=== PATIENT | male | born 1990 | race Two or more races ===

== ENCOUNTER 2021-09-15 21:48 | Emergency (ER) | payer MEDICAID, SELFPAY ==
--- NOTE | ~2021-09-15 | XR_ITS ---
EXAMINATION: XR CHEST CLINICAL INFORMATION: Chest COMPARISON: None TECHNIQUE: 2 views of the chest were obtained. FINDINGS: No significant abnormality is noted involving the heart, lungs, mediastinum, bony thorax or soft tissues. XR/XR chest 2V IMPRESSION: Unremarkable examination.
[2021-09-15 22:04] VITALS: BP 131/75; PULSE 68; RESP 18; TEMP 36.7; O2SAT 97; BMI 30.7
--- NOTE | 2021-09-15 23:22 | ECG_ITS ---
Test Reason : cp Blood Pressure : / mmHG Vent. Rate : 047 BPM Atrial Rate : 047 BPM P-R Int : 154 ms QRS Dur : 114 ms QT Int : 414 ms P-R-T Axes : 011 012 021 degrees QTc Int : 366 ms Sinus bradycardia Otherwise normal ECG No previous ECGs available Referred By: Myriam Herzog Electronically Signed By:TO TAVAREZ
[2021-09-15] MEDS: Cyclobenzaprine HCl 10 MG TABLET PO (23:30)
--- NOTE | 2021-09-15 23:40 | ED.CHESTPAIN ---
HPI - Chest Pain General Chief Complaint: General Medical Stated Complaint: Back pain/Chest pain/ Time Seen by Provider: 09/15/21 22:12 Source: patient Mode of arrival: ambulatory Limitations: no limitations History of Present Illness HPI narrative: Patient presents to the emergency department for evaluation of left upper back pain and chest pain. Patient reports 1 week ago feeling as though he slept wrong and had pain to the left shoulder blade. The pain was intermittent, but was having improvement with ibuprofen. Was evaluated by his primary care provider last week and given a prescription for a muscle relaxer sent to the pharmacy but he has not picked this up yet due to insurance issues. Today upon awakening his pain was suddenly significantly worse. In addition he feels the pain radiating to the chest described as a central chest tightness. Pain is exacerbated with cough or deep inspiration. Denies any prior history of DVT/PE, cancer, recent surgery or immobilization. reports a chronic dry nonproductive cough associated with marijuana usage. Denies any other recreational drug or alcohol usage. Patient does report a history of COVID-19 infection 1 month ago. Related Data Allergies Allergy/AdvReac Type Severity Reaction Status Date / Time No Known Allergies Allergy Verified 09/15/21 22:59 Review of Systems Review of Systems: Constitutional : No Weight loss, No Fever, No Chills ENT/Mouth :? No sore throat, No Rhinorrhea Eyes: No Eye Pain, No Swelling Cardiovascular : pos Chest Pain, no SOB, no Dyspnea on Exertion, No Orthopnea, No Edema, No Palpitations Respiratory : Positive Cough, No Sputum Gastrointestinal : No Nausea, No Vomiting, No Diarrhea, No abdominal Pain, No Hematochezia, No Melena Genitourinary : No Dysuria, No Urinary Frequency Musculoskeletal : Positive shoulder pain. No joint pain, No Myalgias, No Joint Swelling Skin : No Skin Lesions, No rash Neuro : No Weakness, No Numbness, No Dizziness, No Headache Psych : No Anxiety/Panic, No Depression Heme/Lymph: No Bruising, No Lymphadenopathy Endocrine : No Polyuria, No Polydipsia Yes all other systems are reviewed and are negative [facility] Past Medical History Attestation statement: The following information was validated with the patient. Source: old records reviewed Social History Social History Advance Directives: No Advance Directives Information Provided: No Physical Exam Vital Signs: Vital Signs: Last Vital Signs Temp 98.0 F 09/15/21 22:04 Pulse 68 09/15/21 22:04 Resp 18 09/15/21 22:04 BP 131/75 09/15/21 22:04 Pulse Ox 97 09/15/21 22:04 BMI result Body Mass Index 30.7 Vital signs have been reviewed as normal and appeared to be correct. Blood pressure normal.? Heart rate normal.? Respiration rate normal. Temperature normal.? Oxygen saturation normal. Appearance: Alert.?Oriented to person, place and time. No acute distress.?Normal affect. Eyes: Pupils equal, round and reactive to light.? ENT: Pharynx normal.?? Neck: Normal inspection.? Neck supple.?? CVS: Heart sounds normal. Normal heart rate and rhythm.? Pulses normal.??Reproducible chest pain with palpation of the chest wall Respiratory: No respiratory distress.? Lung sounds clear to auscultation bilaterally?? Abdomen: Soft and non-tender. ? Skin: Skin warm and dry.? Normal skin color.? ? Extremities: No lower extremity edema.? No calf ttp. Full AROM to left shoulder. Neuro: Moves all extremities spontaneously. Sensation intact bilaterally. CN II-XII intact. No focal neuro deficits. Ambulates with normal steady gait. Course Course Course Narrative: Patient is a 30-year-old male with no significant past medical history presenting to the emergency department for evaluation of chest and back pain. Will obtain CBC to evaluate for leukocytosis/ anemia, CMP to evaluate for abnormal electrolytes /abnormal renal function/ abnormal hepatic function, EKG and troponin to evaluate for ischemia/ACS. Chest x-ray to evaluate for consolidation/ infiltrate/ mass/ pulmonary congestion. COVID-19 influenza testing. Given patient's recent COVID-19 infection, will obtain D-dimer to exclude PE. Patient last took ibuprofen at 2030, avoid additional answered this time. Patient to trial cyclobenzaprine for back pain. Disposition pending results. Reevaluation(s) Reevaluation #1: COVID-19 and influenza testing are negative. CBC overall unremarkable, mild normocytic anemia. CMP is overall unremarkable. Troponin <3.5, EKG reveals sinus bradycardia, when asked patient states it is not uncommon for his heart rate to be in the 50s, no acute ischemic changes and no risk factors ever unlikely ACS. D-dimer less than 150, unlikely to be pulmonary embolism. Pain is most consistent to be muscular in nature. Advised ice, topical heat, rest, in addition to Tylenol/ibuprofen as needed. As mentioned previously, patient already has a prescription for a muscle relaxer sent to his pharmacy by his primary care provider. Discussed reasons that he should return back to the emergency department. All questions were answered and patient was discharged home in stable condition. MDM - Chest Pain Medical Records Data Attestation: I reviewed the patient's medical records. Lab Data Attestation: I reviewed the patient's lab results. Result diagrams: 09/15/21 23:54 09/15/21 23:54 Labs: Lab Results 09/15/21 09/15/21 09/15/21 Range/Units 23:36 23:36 23:54 WBC 7.2 (4.8-10.8) X10*3/uL RBC 4.69 (4.60-5.80) X10*6/uL Hgb 13.5 L (14.0-18.0) g/dl Hct 39.5 L (42.0-52.0) % MCV 84.2 (80.0-98.0) fL MCH 28.8 (27.0-33.0) pg MCHC 34.2 (31.0-36.0) g/dl RDW 13.9 (11.0-16.0) % Plt Count 224 (160-400) X10*3/uL MPV 9.9 (9.4-12.4) fL Immature Gran % (Auto) 0.3 (0.0-0.4) % Neut % (Auto) 56.2 (45-73) % Lymph % (Auto) 32.3 (20-40) % [place] % (Auto) 6.9 (2-11) % Eos % (Auto) 3.6 (0-4) % Baso % (Auto) 0.7 (0-2) % Lymph # (Auto) 2.3 (1.2-4.9) X10*3/uL [place] # (Auto) 0.5 (0.1-1.2) X10*3/uL Eos # (Auto) 0.3 (0.0-0.4) X10*3/uL Baso # (Auto) 0.1 (0.0-0.2) X10*3/uL Abs Immat Gran (auto) 0.02 (0.00-0.03) X10*3/uL Absolute Neuts (auto) 4.1 (2.0-8.3) x10*3/uL Absolute Nucleated RBC 0.000 (0.0-0.012) X10*3/uL Nucleated RBC % (auto) 0.0 (0.0-0.2) /100WBC D-Dimer High Sensitivty NG/ML Sodium (135-145) mmol/L Potassium (3.3-5.1) mmol/L Chloride (96-108) mmol/L Carbon Dioxide (22-29) mmol/L Anion Gap (12-20) BUN (9-16) mg/dL Creatinine (0.5-1.4) mg/dL Estim Creat Clear Calc Estimated GFR Random Glucose (60-115) mg/dL Calcium (8.4-10.2) mg/dL Magnesium (1.6-2.6) mg/dL Total Bilirubin (0.0-1.0) mg/dL AST (5-37) U/L ALT (0-40) U/L Alkaline Phosphatase (39-117) U/L Troponin I High Sens (<3.5-35.0) ng/L Total Protein (6.5-8.0) g/dL Albumin (3.5-5.0) g/dL COVID-19 ([facility]) Negative (Negative) COVID-19 Clin Com See Note Influenza Type A ([facility]) Negative (Negative) Influenza Type B ([facility]) Negative (Negative) Influenza A & B Note See Note 09/15/21 09/15/21 09/15/21 Range/Units 23:54 23:54 23:54 WBC (4.8-10.8) X10*3/uL RBC (4.60-5.80) X10*6/uL Hgb (14.0-18.0) g/dl Hct (42.0-52.0) % MCV (80.0-98.0) fL MCH (27.0-33.0) pg MCHC (31.0-36.0) g/dl RDW (11.0-16.0) % Plt Count (160-400) X10*3/uL MPV (9.4-12.4) fL Immature Gran % (Auto) (0.0-0.4) % Neut % (Auto) (45-73) % Lymph % (Auto) (20-40) % [place] % (Auto) (2-11) % Eos % (Auto) (0-4) % Baso % (Auto) (0-2) % Lymph # (Auto) (1.2-4.9) X10*3/uL [place] # (Auto) (0.1-1.2) X10*3/uL Eos # (Auto) (0.0-0.4) X10*3/uL Baso # (Auto) (0.0-0.2) X10*3/uL Abs Immat Gran (auto) (0.00-0.03) X10*3/uL Absolute Neuts (auto) (2.0-8.3) x10*3/uL Absolute Nucleated RBC (0.0-0.012) X10*3/uL Nucleated RBC % (auto) (0.0-0.2) /100WBC D-Dimer High Sensitivty < 150 NG/ML Sodium 142 (135-145) mmol/L Potassium 4.2 (3.3-5.1) mmol/L Chloride 109 H (96-108) mmol/L Carbon Dioxide 25 (22-29) mmol/L Anion Gap 12 (12-20) BUN 15 (9-16) mg/dL Creatinine 1.02 (0.5-1.4) mg/dL Estim Creat Clear Calc 127.4 Estimated GFR > 60 Random Glucose 93 (60-115) mg/dL Calcium 9.4 (8.4-10.2) mg/dL Magnesium 1.8 (1.6-2.6) mg/dL Total Bilirubin 1.0 (0.0-1.0) mg/dL AST 26 (5-37) U/L ALT 68 H (0-40) U/L Alkaline Phosphatase 50 (39-117) U/L Troponin I High Sens < 3.5 (<3.5-35.0) ng/L Total Protein 6.8 (6.5-8.0) g/dL Albumin 4.1 (3.5-5.0) g/dL COVID-19 ([facility]) (Negative) COVID-19 Clin Com Influenza Type A ([facility]) (Negative) Influenza Type B ([facility]) (Negative) Influenza A & B Note Imaging Data Chest x-ray: Radiologist's impression: FINDINGS: No significant abnormality is noted involving the heart, lungs, mediastinum, bony thorax or soft tissues. XR/XR chest 2V IMPRESSION: Unremarkable examination. ECG Data ECG #1: Attestation: I personally reviewed and interpreted this ECG as follows: Prior ECG tracings: not available for review Interpretation: Rate: Rhythm:? [place]:? Normal P waves.? Normal NATALIYA.?? Normal QRS complex.?? ST T wave :?? qTC: prior studies:? The study has been interpreted contemporaneously by me. Discharge Plan Discharge Clinical Impression: Chest pain, Acute shoulder pain Patient Disposition: Home, Self-Care Instructions: Noncardiac Chest Pain (ED), Shoulder Pain (ED) Additional Instructions: As we discussed the results of your blood work, EKG, and chest x-ray were all normal. Pain is most likely to be muscular in nature. Continue taking Tylenol and ibuprofen as needed for pain. You were given a prescription for muscle relaxer by her primary care provider as you made me aware, please pick this up from the pharmacy when you are able. You may return to the emergency department any new or worsening symptoms or concerns. Otherwise please follow-up with your primary care provider as needed.
[2021-09-16 00:02] LABS: MANUAL DIFF FLAG NO
[2021-09-16 00:22] LABS: Basophils Absolute Auto 0.1 X10*3/uL (0.0-0.2); Basophils Percent Auto 0.7 % (0-2); Eosinophils Absolute Auto 0.3 X10*3/uL (0.0-0.4); Eosinophils Percent Auto 3.6 % (0-4); Hematocrit 39.5 % (42.0-52.0); Hemoglobin 13.5 g/dl (14.0-18.0); Imm Gran Abs Auto 0.02 X10*3/uL (0.00-0.03); Imm Gran Pct Auto 0.3 % (0.0-0.4); Lymphocytes Absolute Auto 2.3 X10*3/uL (1.2-4.9); Lymphocytes Percent Auto 32.3 % (20-40); Mean Corpuscular HGB Conc 34.2 g/dl (31.0-36.0); Mean Corpuscular Hemoglobin 28.8 pg (27.0-33.0); Mean Corpuscular Volume 84.2 fL (80.0-98.0); Mean Platelet Volume 9.9 fL (9.4-12.4); Monocytes Absolute Auto 0.5 X10*3/uL (0.1-1.2); Monocytes Percent Auto 6.9 % (2-11); Neutrophils Absolute Auto 4.1 x10*3/uL (2.0-8.3); Neutrophils Percent Auto 56.2 % (45-73); Platelet Count 224 X10*3/uL (160-400); Red Blood Count 4.69 X10*6/uL (4.60-5.80); Red Cell Distribution Width 13.9 % (11.0-16.0); White Blood Count 7.2 X10*3/uL (4.8-10.8)
[2021-09-16 00:24] LABS: Alanine Aminotransferase 68 U/L (0-40); Albumin Level 4.1 g/dL (3.5-5.0); Alkaline Phosphatase 50 U/L (39-117); Anion Gap 12 (12-20); Aspartate Amino Transferase 26 U/L (5-37); Blood Urea Nitrogen 15 mg/dL (9-16); Calcium 9.4 mg/dL (8.4-10.2); Carbon Dioxide 25 mmol/L (22-29); Chloride 109 mmol/L (96-108); Creatinine Clr Calc Pharmacy 127.4; Estimated Glomerular Filt Rate > 60; Glucose Random 93 mg/dL (60-115); Magnesium 1.8 mg/dL (1.6-2.6); Potassium 4.2 mmol/L (3.3-5.1); Sodium 142 mmol/L (135-145); Total Protein 6.8 g/dL (6.5-8.0)
[2021-09-16 00:25] LABS: Troponin-I High Sensitivity < 3.5 ng/L (<3.5-35.0)
[2021-09-16 00:37] LABS: D Dimer High Sensitivity < 150 NG/ML
[2021-09-16 00:42] LABS: COVID-19 Test Negative (Negative); IDNOW Serial# 55D5AD1C
[2021-09-16 00:46] LABS: Influenza A Negative (Negative); Influenza B2 Negative (Negative)
== END 2021-09-16 01:06 | disposition home or self-care (01) ==
PROVIDERS: Nurse Practitioner Family; Emergency Provider Internal Medicine
DX: R07.9 Chest pain, unspecified (principal); M25.512 Pain in left shoulder; Z20.822 Contact with and (suspected) exposure to COVID-19
CPT/HCPCS: 36415; 71046; 80053; 83735; 84484; 85025; 85379; 87502; 87635; 93005; 99283; 99284

== ENCOUNTER 2021-09-18 09:01 | Emergency (ER) | payer MEDICAID, SELFPAY ==
--- NOTE | ~2021-09-18 | XR_ITS ---
EXAMINATION: XR CHEST CLINICAL INFORMATION: Chest wall pain. COMPARISON: 09/16/2021 chest radiographs. TECHNIQUE: 2 views of the chest were obtained. FINDINGS: No significant abnormality is noted involving the heart, lungs, mediastinum, bony thorax or soft tissues. XR/XR chest 2V IMPRESSION: No acute cardiopulmonary process.
[2021-09-18 09:07] VITALS: BP 131/95; PULSE 55; RESP 18; TEMP 36.6; O2SAT 98; BMI 30.7
--- NOTE | 2021-09-18 09:12 | ECG_ITS ---
Test Reason : chest pain Blood Pressure : / mmHG Vent. Rate : 061 BPM Atrial Rate : 061 BPM P-R Int : 164 ms QRS Dur : 118 ms QT Int : 392 ms P-R-T Axes : 025 013 024 degrees QTc Int : 394 ms Normal sinus rhythm with sinus arrhythmia Non-specific intra-ventricular conduction delay Borderline ECG When compared with ECG of 15-SEP-2021 23:37, No significant change was found Referred By: Generic ED Physician Electronically Signed By:TO TAVAREZ
--- NOTE | 2021-09-18 11:52 | ED_ITS ---
HPI - General Adult General Chief complaint: General Medical Stated complaint: chest pain, Time Seen by Provider: 09/18/21 11:38 Source: patient Mode of arrival: ambulatory Limitations: no limitations History of Present Illness HPI narrative: 30-year-old male presents for left-sided back pain, left-sided chest pain that hurts more when he burps or swallows food. Patient has been taking omeprazole [id number] for self diagnosed reflux. Patient tells me that 2 weeks ago he was sleeping on the floor in his baby's nursery, and he woke up with his left upper side hurting. The pain worsened and now he feels it in his back, in his chest, worse with swallowing and eating. Patient was seen here 2 days ago, worked up for chest pain, and had a negative workup. Patient states his primary care provider prescribed a muscle relaxant which did not help, but the muscle relaxant he got in the emergency room helped. Patient does state he is using a lot of ibuprofen due to his back pain. Remote history of pancreatitis, patient used to drink a lot of alcohol and now does not drink anymore. Patient newly established with primary care provider, tells me he has not seen a doctor since he was 14 years old. Related Data Previous Rx's Medication Instructions Recorded cyclobenzaprine 5 mg tablet 5 mg PO TID PRN muscle spasm 5 09/18/21 days #15 tabs ketorolac 10 mg tablet 10 mg PO Q6H 5 days #20 tabs 09/18/21 Allergies Allergy/AdvReac Type Severity Reaction Status Date / Time No Known Allergies Allergy Verified 09/15/21 22:59 Review of Systems Constitutional: Constitutional: Denies body ache(s), Denies chills, Denies fatigue, Denies fever(s), Denies malaise and Denies weakness Eyes: Eyes: Denies diplopia ENT: Reports odynophagia Cardiovascular: Cardiovascular: Reports chest pain, Denies syncope, Denies leg edema, Denies lightheadedness, Denies Loss of Consciousness, Denies palpitations and Denies dyspnea Respiratory: Respiratory: Denies chest congestion, Denies cough and Denies dyspnea Gastrointestinal: Gastrointestinal: Denies abdominal pain, Reports belching, Denies melena, Denies hematochezia, Denies coffee ground emesis, Denies c onstipation, Reports heartburn, Denies diarrhea, Denies nausea, Reports odynophagia and Denies vomiting Musculoskeletal: Musculoskeletal: Reports back pain Neurologic: Denies confusion, Denies syncope and Denies weakness Psychiatric: Psychiatric: Denies anxiety, Denies confusion and Denies depression Endocrine: Endocrine: Denies fatigue and Denies palpitations PMFSH Social History Social History Advance Directives: No Advance Directives Information Provided: No Physical Exam ED Vital Signs: Vital Signs - 24 hr 09/18/21 09:07 Temperature 98 F Pulse Rate 55 Respiratory Rate 18 Blood Pressure 131/95 H Pulse Oximetry 98 Oxygen Delivery Method Room Air BMI result Body Mass Index 30.7 Const General: No confusion Nutritional Appearance: well nourished Orientation/consciousness: No confusion Limitations: no limitations HENMT Head: Yes normal to inspection, Yes normocephalic and Yes atraumatic Ears: hearing grossly normal bilaterally, external ears normal, TM's normal bilaterally and EAC's normal General nose exam: Normal external nose present Face and sinus: Yes normal facial exam and Yes sinuses nontender Mouth: Normal oral and palatal mucosa present Throat: Yes posterior oropharynx normal Eyes Conjunctivae: conjunctivae normal Pupils: Equal, round and reactive pupils present EOM: EOMs intact bilaterally Neck Neck: Yes full ROM, Yes no lymphadenopathy and Yes supple Resp Effort & Inspection: normal respiratory effort and able to speak in complete sentences Auscultation: clear to auscultation bilaterally, no crackles, no rales, no rhonchi and no wheezes Cardio Rate: regular rate Rhythm: regular rhythm Heart sounds: S1 normal heart sound present and S2 normal heart sound present GI Inspection: Yes normal to inspection Palpation (GI): Soft to palpation, nontender, no guarding and not rigid Percussion: Yes normal to percussion Auscultation: normal bowel sounds Skin General skin exam: no rashes or lesions noted Neuro General: No confusion Cranial nerves: Yes Equal, round and reactive pupils present Extrem General: Yes normal to inspection and Yes full ROM Psych Appearance: grossly normal Affect: normal affect Attitude: cooperative Thought process: Normal thought process present Course Course Course Narrative: 30-year-old male presents for 2-3 weeks of left-sided back pain, chest pain, pressure in his chest when he burps or when he swallows food. EKG shows normal sinus with sinus arrhythmia, no ischemia, troponin is negative despite symptoms starting over 2 weeks ago, D-dimer is negative, chest x-ray shows no acute pathology, patient is COVID negative. Patient is feeling better with ketorolac and Flexeril, will prescribe same for home consultation to follow-up with his primary care provider, as he may need an upper endoscopy for his reflux symptoms the patient's questions were answered, patient is safe for discharge home FINDINGS: No significant abnormality is noted involving the heart, lungs, mediastinum, bony thorax or soft tissues. XR/XR chest 2V IMPRESSION: No acute cardiopulmonary process. Medical Decision Making Lab Data Labs: Lab Results 09/18/21 09/18/21 09/18/21 Range/Units 12:07 12:07 12:08 D-Dimer High Sensitivty < 150 NG/ML Troponin I High Sens < 3.5 (<3.5-35.0) ng/L COVID-19 ([facility]) Negative (Negative) COVID-19 Clin Com See Note ECG Data Interpretation: EKG shows sinus at a rate of 61, VA interval 164, QRS 118, QTC 394, normal axis, no ST depression or elevation, no T-wave abnormalities, sinus arrhythmia Discharge Plan Discharge Clinical Impression: Acute chest wall pain Patient Disposition: Home, Self-Care Instructions: Gastroesophageal Reflux Disease (ED), Muscle Spasm (ED) Additional Instructions: Please take the medicines I prescribed for you. Please do not take any ibuprofen containing products while you are taking this medicine please only take the muscle relaxant that I prescribed today, understand that you are prescribed another 1 by your primary care provider, please do not take that 1. I do not want you to be taking 2 muscle relaxants at the same time, o nly take the one I prescribed Please call your primary care provider for follow-up appointment from today's emergency room visit. I would like him to evaluate you for a possible referral to Gastroenterology for possible upper endoscopy. You tell me that you have had reflux symptoms for some time, however you do not have a diagnosis of reflux, I would like your primary care to evaluate this, as I feel this may be contributing to your pain today please return to the emergency room if you have chest pain, shortness of breath, abdominal pain, nausea, vomiting, or any other new or concerning s ymptoms Prescriptions: New ketorolac 10 mg tablet 10 mg PO Q6H 5 Days Qty: 20 0RF cyclobenzaprine 5 mg tablet 5 mg PO TID PRN (Reason: muscle spasm) 5 Days Qty: 15 0RF
[2021-09-18] MEDS: Cyclobenzaprine HCl 5 MG TABLET PO (12:01)
[2021-09-18] MEDS: Ketorolac Tromethamine 30 MG/ML VIAL IM (12:02)
[2021-09-18 12:25] LABS: D Dimer High Sensitivity < 150 NG/ML
[2021-09-18 12:28] LABS: COVID-19 Test Negative (Negative)
[2021-09-18 12:32] LABS: Troponin-I High Sensitivity < 3.5 ng/L (<3.5-35.0)
== END 2021-09-18 13:03 | disposition home or self-care (01) ==
PROVIDERS: Physician Assistant; Emergency Provider Emergency Medicine
DX: R07.89 Other chest pain (principal); Z20.822 Contact with and (suspected) exposure to COVID-19
CPT/HCPCS: 71046; 84484; 85379; 87635; 93005; 96372; 99283; 99284; J1885